=== PATIENT | male | born 1960 | race Hispanic/Latino ===

== ENCOUNTER 2018-01-25 09:39 | Emergency (ER) | payer SELFPAY ==
[2018-01-25 10:15] LABS: Absolute Lymphocytes (CBC) 2.1 K/uL (0.7-4.9); Absolute Monocytes 0.7 K/uL (0.1-1.3); Basophils % 0.8 % (0-1.3); Eosinophils % 2.8 % (0-4.4); Hematocrit 47.5 % (39.6-49.0); Lymphocytes % 15.9 % (15.3-44.8); MCH 30.6 pg (27.0-35.0); MCV 90.1 fL (80-100); MPV 7.4 fL (7.6-11.3); Monocytes % 5.3 % (3.3-12.3); RBC Red Blood Cell Count 5.28 M/uL (4.33-5.43)
[2018-01-25] MEDS ORDERED: ONDANSETRON 4 MG/2 ML VIAL ONE (10:16)
[2018-01-25] MEDS ORDERED: NA CHLORIDE 0.9% 1,000 ML ONE (10:16)
[2018-01-25] MEDS ORDERED: MORPHINE 4 MG/ML SYR ONE (10:16)
[2018-01-25 10:32] LABS: Bicarbonate 29 mEq/L (21-31); Glucose Level 128 mg/dL (65-120); Lipase 44 U/L (22-51); Potassium 4.1 mEq/L (3.6-5.0)
[2018-01-25 10:39] LABS: ALT/SGPT 36 IU/L (10-60); AST/SGOT 29 IU/L (10-42); Albumin 4.3 g/dL (3.2-5.5); Alkaline Phosphatase 96 IU/L (42-121); Amylase Level 97 U/L (28-100); BUN Blood Urea Nitrogen 14 mg/dL (6-20); Bilirubin Direct 0.1 mg/dL (0-0.2); Bilirubin Total 0.9 mg/dL (0.3-1.2); Protein, Total 7.2 g/dL (6.0-8.3)
--- NOTE | 2018-01-25 12:13 | RAD REPORT ---
EXAM DESCRIPTION: CT - Abdomen Pelvis W Contrast - 01/25/2018 11:48 am CLINICAL HISTORY: Abdominal pain periumbilical pain with nausea and vomiting for 2 days COMPARISON: none. TECHNIQUE: Computed axial tomography of the abdomen pelvis was obtained. 100 cc Isovue-300 was admin istered intravenously. Oral contrast was not requested which limits evaluation of bowel. All CT scans are performed using dose optimization technique as appropriate and may include automated exposure control or mA/KV adjustment according to patient size. FINDINGS: The liver, spleen, pancreas, adrenal and kidneys appear unremarkable. There is no evidence of diverticulitis. The appendix is normal. Bilateral inguinal hernias contain fat. An umbilical hernia contains fat. The neck measures 12 millim eters. Stranding is present within the fat IMPRESSION: Umbilical hernia. Stranding within the fat may indicate strangulation.
--- NOTE | 2018-01-25 13:06 | ER ---
Nurse's Notes [facility] Name: Ha Curry Age: 57 yrs Sex: Male : 1960 Arrival Date: 01/25/2018 Time: 09:42 Bed 12 Private MD: None, None Diagnosis: Umbilical hernia Presentation: 01/25 09:44 Presenting complaint: Patient states: Intermittent periumbilical pain and N/V x 2 days. hb Pain is partially relieved by vomiting, but returns after a few hours. Transition of care: patient was not received from another setting of care. Onset of symptoms was January 24, 2018. Initial Sepsis Screen: Does the patient meet any 2 criteria? No. Patient's initial sepsis screen is negative. Does the patient have a suspected source of infection? No. Patient's initial sepsis screen is negative. Care prior to arrival: None. 09:44 Method Of Arrival: Ambulatory hb 09:44 Acuity: DEVORAH 3 hb Historical: - Allergies: 09:46 No Known Allergies; hb - Home Meds: 09:46 None [Active]; hb - PMHx: 09:46 None; hb - PSHx: 09:46 None; hb - Immunization history:: Adult Immunizations up to date. - Social history:: Smoking status: Patient uses tobacco products, smokes one pack cigarettes per day. Screenin:00 Abuse screen: Denies threats or abuse. Denies injuries from another. Nutritional ph screening: No deficits noted. Tuberculosis screening: No symptoms or risk factors identified. Fall Risk None identified. Assessment: 10:00 General: Appears in no apparent distress. uncomfortable, well groomed, Behavior is ph calm, cooperative, appropriate for age, Denies fever, feeling ill. Pain: Complains of pain in abdomen and umbilical area. Neuro: Level of Consciousness is awake, alert, obeys commands, Oriented to person, place, time, situation. Cardiovascular: Capillary refill < 3 seconds Patient's skin is warm and dry. Respiratory: Airway is patent Respiratory effort is even, unlabored. GI: Abdomen is flat, non-distended, Bowel sounds present X 4 quads. Abd is soft and non tender X 4 quads. : No signs and/or symptoms were reported regarding the genitourinary system. Derm: Skin is intact, is healthy with good turgor, Skin is pink, warm \T\ dry. Musculoskeletal: Circulation, motion, and sensation intact. Range of motion: intact in all extremities. 11:09 Reassessment: Patient appears in no apparent distress at this time. Patient and/or ph family updated on plan of care and expected duration. Pain level reassessed. Patient is alert, oriented x 3, equal unlabored respirations, skin warm/dry/pink. Pt resting quietly, awaiting CT scan, SO at bedside. 12:00 Reassessment: Patient appears in no apparent distress at this time. Patient and/or ph family updated on plan of care and expected duration. Pain level reassessed. Patient is alert, oriented x 3, equal unlabored respirations, skin warm/dry/pink. 13:25 Reassessment: Patient is alert, oriented x 3, equal unlabored respirations, skin aa5 warm/dry/pink. Vital Signs: 09:46 BP 153 / 73; Pulse 58; Resp 18; Temp 98; Pulse Ox 100% on R/A; Weight 83.91 kg; Height hb 5 ft. 8 in. (172.72 cm); Pain 10/10; 11:10 BP 113 / 78; Pulse 50; Resp 16; Pulse Ox 100% on R/A; ph 12:30 BP 118 / 78; Pulse 52; Resp 18; Temp 97.9; Pulse Ox 99% on R/A; ph 09:46 Body Mass Index 28.13 (83.91 kg, 172.72 cm) hb ED Course: 09:42 Patient arrived in ED. mr 09:42 None, None is Private Physician. mr 09:46 Triage completed. hb 09:46 Arm band placed on left wrist. hb 09:49 Sasha Sanders FNP-C is PHCP. kb 09:49 Sabas Blair MD is Attending Physician. kb 09:51 Sarah Berger RN is Primary Nurse. ph 10:00 Patient has correct armband on for positive identification. Bed in low position. Call ph light in reach. Side rails up X 1. Pulse ox on. NIBP on. Warm blanket given. 10:05 Inserted saline lock: 20 gauge in left forearm, using aseptic technique. Blood tw2 collected. 11:[address] via wheelchair. kw1 11:47 CT completed. Patient tolerated procedure well. Patient moved back from CT. kw1 11:49 CT Abd/Pelvis - W/Contrast In Process Unspecified. EDMS 13:00 No provider procedures requiring assistance completed. ph 13:05 Danilo Tolentino MD is Referral Physician. kb 13:25 IV discontinued, intact, bleeding controlled, No redness/swelling at site. Pressure aa5 dressing applied. Administered Medications: 10:18 Drug: Zofran 4 mg Route: IVP; Site: left forearm; tw2 11:00 Follow up: Response: No adverse reaction ph 10:20 Drug: morphine 4 mg Route: IVP; Site: left forearm; tw2 11:00 Follow up: Response: No adverse reaction ph 10:22 Drug: NS 0.9% 1000 ml Route: IV; Rate: 1000 ml; Site: left forearm; tw2 11:30 Follow up: Response: No adverse reaction; IV Status: Completed infusion ph Outcome: 13:06 Discharge ordered by MD. kb 13:[address] Tolentino's office with family aa5 13:25 Condition: stable 13:25 Discharge instructions given to patient, Instructed on discharge instructions, follow up and referral plans. Demonstrated understanding of instructions, follow-up care. 13:27 Patient left the ED. aa5 Signatures: Dispatcher [employer] EDMS Sasha Sanders, RESISTOR TESTER-C RESISTOR TESTER-Debbie Johnson Audri, RN RN aa5 Sarah Berger, RUDY RN Lurdes Cole, RUDY GRANT Destiny Mendiola RN RN tw2 Maura Elise kw1
--- NOTE | 2018-01-25 13:06 | EDPHYS ---
Physician Documentation [facility] Name: Ha Curry Age: 57 yrs Sex: Male : 1960 Arrival Date: 01/25/2018 Time: 09:42 Bed 12 Private MD: None, None ED Physician Sabas Blair HPI: 01/25 12:41 This 57 yrs old Male presents to ER via Ambulatory with complaints of kb Abdominal Pain. 12:41 The patient presents with abdominal pain. Onset: The symptoms/episode began/occurred kb yesterday, at 16:00. The symptoms do not radiate. Associated signs and symptoms: Pertinent positives: nausea, Pertinent negatives: anorexia, blood in stools, chest pain, constipation, diarrhea, dysuria, fever, headache, hematuria, palpitations, shortness of breath, testicular pain, vomiting blood. The symptoms are described as constant. Modifying factors: The symptoms are alleviated by nothing, the symptoms are aggravated by pressure. Severity of pain: At its worst the pain was moderate in the emergency department the pain is unchanged. The patient has experienced similar episodes in the past, multiple times. The patient has not recently seen a physician. Historical: - Allergies: 09:46 No Known Allergies; hb - Home Meds: 09:46 None [Active]; hb - PMHx: 09:46 None; hb - PSHx: 09:46 None; hb - Immunization history:: Adult Immunizations up to date. - Social history:: Smoking status: Patient uses tobacco products, smokes one pack cigarettes per day. ROS: 10:09 Constitutional: Negative for fever, chills, and weight loss, Cardiovascular: Negative kb for chest pain, palpitations, and edema, Respiratory: Negative for shortness of breath, cough, wheezing, and pleuritic chest pain, Back: Negative for injury and pain, : Negative for injury, bleeding, discharge, and swelling, MS/Extremity: Negative for injury and deformity, Skin: Negative for injury, rash, and discoloration, Neuro: Negative for headache, weakness, numbness, tingling, and seizure. 10:09 Abdomen/GI: Positive for abdominal pain, nausea and vomiting, Negative for diarrhea, constipation, abdominal cramps, abdominal distension, anorexia. Exam: 10:09 Constitutional: This is a well developed, well nourished patient who is awake, alert, kb and in no acute distress. Head/Face: Normocephalic, atraumatic. Chest/axilla: Normal chest wall appearance and motion. Nontender with no deformity. No lesions are appreciated. Cardiovascular: Regular rate and rhythm with a normal S1 and S2. No gallops, murmurs, or rubs. Normal PMI, no JVD. No pulse deficits. Respiratory: Lungs have equal breath sounds bilaterally, clear to auscultation and percussion. No rales, rhonchi or wheezes noted. No increased work of breathing, no retractions or nasal flaring. Skin: Warm, dry with normal turgor. Normal color with no rashes, no lesions, and no evidence of cellulitis. MS/ Extremity: Pulses equal, no cyanosis. Neurovascular intact. Full, normal range of motion. Neuro: Awake and alert, GCS 15, oriented to person, place, time, and situation. Cranial nerves II-XII grossly intact. Motor strength 5/5 in all extremities. Sensory grossly intact. Cerebellar exam normal. Normal gait. 10:09 Abdomen/GI: Inspection: abdomen appears normal, Bowel sounds: normal, in all quadrants, Palpation: soft, in all quadrants, mild abdominal tenderness, in the right upper quadrant, right lower quadrant and left lower quadrant, Hernia: noted in the umbilical area, tenderness, that is mild, reduced. Vital Signs: 09:46 BP 153 / 73; Pulse 58; Resp 18; Temp 98; Pulse Ox 100% on R/A; Weight 83.91 kg; Height hb 5 ft. 8 in. (172.72 cm); Pain 10/10; 11:10 BP 113 / 78; Pulse 50; Resp 16; Pulse Ox 100% on R/A; ph 12:30 BP 118 / 78; Pulse 52; Resp 18; Temp 97.9; Pulse Ox 99% on R/A; ph 09:46 Body Mass Index 28.13 (83.91 kg, 172.72 cm) hb MDM: 09:49 Patient medically screened. kb 10:08 Data reviewed: vital signs, nurses notes. Data interpreted: Pulse oximetry: on room air kb is 100 %. Interpretation: normal. 10:09 ED course: umbilical hernia reduced, pt tolerated well. Pain decreased after reduction. kb 12:41 Counseling: I had a detailed discussion with the patient and/or guardian regarding: the kb historical points, exam findings, and any diagnostic results supporting the discharge/admit diagnosis, lab results, radiology results, the need for outpatient follow up, a general surgeon, to return to the emergency department if symptoms worsen or persist or if there are any questions or concerns that arise at home. Physician consultation: Danilo Tolentino MD was contacted at 12:41, regarding consult, patient's condition, and will see patient in office, later today. 13:02 ED course: Spoke with Lyudmila at Dr Tolentino's office. Appt set for 1400 today. kb 01/25 09:49 Order name: Amylase, Serum kb 01/25 09:49 Order name: Basic Metabolic Panel kb 01/25 09:49 Order name: CBC with Diff; Complete Time: 10:26 kb 01/25 09:49 Order name: Hepatic Function kb 01/25 09:49 Order name: Lipase kb 01/25 10:04 Order name: CT Abd/Pelvis - W/Contrast; Complete Time: 12:15 kb 01/25 09:49 Order name: IV Saline Lock; Complete Time: 10:14 kb 01/25 09:49 Order name: Labs collected and sent; Complete Time: 10:14 kb Administered Medications: 10:18 Drug: Zofran 4 mg Route: IVP; Site: left forearm; tw2 11:00 Follow up: Response: No adverse reaction ph 10:20 Drug: morphine 4 mg Route: IVP; Site: left forearm; tw2 11:00 Follow up: Response: No adverse reaction ph 10:22 Drug: NS 0.9% 1000 ml Route: IV; Rate: 1000 ml; Site: left forearm; tw2 11:30 Follow up: Response: No adverse reaction; IV Status: Completed infusion ph Disposition: 14:19 Co-signature as Attending Physician, Sabas Blair MD I agree with the assessment and lindsay plan of care. Disposition: 01/25/18 13:06 Discharged to Home. Impression: Umbilical hernia. - Condition is Stable. - Discharge Instructions: Hernia, [id number]. - Medication Reconciliation Form, Thank You Letter, Antibiotic Education, Prescription Opioid Use form. - Follow up: Emergency Department; When: As needed; Reason: Worsening of condition. Follow up: Danilo Tolentino MD; When: at 2:00 PM today; Reason: Recheck today's complaints. Signatures: Dispatcher [employer] EDMS TommyDemetrioSasha, AQUATIC ECOLOGIST-C AQUATIC ECOLOGIST-Ckb Sabas Blair MD MD cha Calderon, Audri, RN RN aa5 Lurdes Cole, RN RN Destiny Mendiola RN RN tw2 Sarah Berger RN ph Corrections: (The following items were deleted from the chart) 13:27 13:06 01/25/2018 13:06 Discharged to Home. Impression: Umbilical hernia. Condition is aa5 Stable. Forms are Medication Reconciliation Form, Thank You Letter, Antibiotic Education, Prescription Opioid Use. Follow up: Emergency Department; When: As needed; Reason: Worsening of condition. Follow up: Danilo Tolentino; When: at 2:00 PM today; Reason: Recheck today's complaints. kb
[2018-01-25 23:37] LABS: Sodium Level 139 mEq/L (135-145)
== END 2018-01-25 13:27 | disposition home or self-care (01) ==
LOC: ER 09:39
DX: K42.9 Umbilical hernia without obstruction or gangrene (principal); F17.210 Nicotine dependence, cigarettes, uncomplicated
CPT/HCPCS: 36415; 74177; 80048; 80076; 82150; 83690; 85025; 96361; 96374; 96375; 99284; J2405; J7030

== ENCOUNTER 2024-07-22 22:56 | Emergency (ER) | payer SELFPAY ==
[2024-07-22] MEDS ORDERED: TDAP (DIPHTH,PERTUSS(ACELL),TET VAC) 0.5 ML VIAL IMVAC ONE (23:16)
[2024-07-22 23:21] LABS: Absolute Basophils 0.2 K/uL (0-0.5); Absolute Eosinophils 0.2 K/uL (0-0.5); Absolute Lymphocytes (CBC) 1.9 K/uL (0.7-4.9); Absolute Monocytes 0.9 K/uL (0.1-1.3); Absolute Neutrophil 9.1 K/uL (1.8-8.0); Basophils % 1.4 % (0-1.3); Eosinophils % 1.8 % (0-4.4); Hematocrit 42.1 % (39.6-49.0); Hemoglobin 14.7 g/dL (13.6-17.9); Lymphocytes % 15.1 % (15.3-44.8); MCH 31.7 pg (27.0-35.0); MCHC 34.8 g/dL (32.0-36.0); MPV 6.7 fL (7.6-11.3); Monocytes % 7.6 % (3.3-12.3); Neutrophils % 74.1 % (41.7-73.7); Nucleated Red Blood Cells % 0.1 % (0-0); Platelets 339 thou/uL (152-406); RBC Red Blood Cell Count 4.63 M/uL (4.33-5.43); Red Cell Distribution Width 13.2 % (12.1-15.2)
[2024-07-22 23:41] LABS: Albumin 3.7 g/dL (3.4-5.0); Albumin/Globulin Ratio 1.1 (1.1-1.8); Bilirubin Total 1.2 mg/dL (0.2-1.0); Globulin 3.5 g/dL (2.3-3.5); Protein, Total 7.2 g/dL (6.4-8.2)
[2024-07-22] MEDS ORDERED: NA CHLORIDE 0.9% 1,000 ML ONE (23:51)
[2024-07-23] MEDS ORDERED: LEVETIRACETAM 500 MG/5 ML VIAL IV ONE (00:26)
[2024-07-23] MEDS ORDERED: NA CHLORIDE 0.9% 100 ML ONE (00:27)
[2024-07-23] MEDS ORDERED: LORazepam 2 MG/ML VIAL ONE (00:28)
[2024-07-23] MEDS ORDERED: DIPHENHYDRAMINE 50 MG/ML VIAL ONE (00:31)
[2024-07-23] MEDS ORDERED: HALOPERIDOL LACT 5 MG/ML INJ ONE (00:32)
[2024-07-23 01:39] LABS: Barbiturates NEGATIVE (NEGATIVE); Benzodiazepines NEGATIVE (NEGATIVE); Cocaine POSITIVE (NEGATIVE); METHAMPHETAM NEGATIVE (NEGATIVE); Methadone NEGATIVE (NEGATIVE); Opiates NEGATIVE (NEGATIVE); Phencyclidine NEGATIVE (NEGATIVE); THC Cannibis POSITIVE (NEGATIVE)
[2024-07-23 01:47] LABS: Specific Gravity 1.027 (1.005-1.030); Sqamous Epithelial <5 /HPF (None Seen); Urine Bacteria <20 /HPF (<20); Urine Bilirubin NEGATIVE (Negative); Urine Blood 1+ (Negative); Urine Clarity Turbid (Clear); Urine Color Yellow (Yellow); Urine Crystals Unidentified Few /HPF (None Seen); Urine Culture Reflex Order REFLEXED; Urine Glucose TRACE (Negative); Urine Ketones 1+ (Negative); Urine Micro Reflex YN NO BILL MICROSCOPIC; Urine Mucus Slight /HPF (None Seen); Urine Nitrite NEGATIVE (Negative); Urine Protein 1+ (Negative); Urine Urobilinogen Normal (Normal); Urine WBC Clump Rare /HPF (None Seen); Urine Yeast (Budding) Trace /HPF (None Seen); Urine pH 5.5 (5.0-7.0)
--- NOTE | 2024-07-23 02:41 | RAD REPORT ---
EXAM DESCRIPTION: Head Brain Wo Cont CLINICAL HISTORY: 64 years Male Head injury. COMPARISON: None. TECHNIQUE: Images were obtained in axial, coronal and sagittal planes. No contrast administration. This exam was performed according to our departmental dose-optimization program which includes use of Automated Exposure Control, adjustment of the mA and/or kV according to patient size and/or use of iterative re construction technique. FINDINGS: Ventricular system appears normal. No abnormal areas of increased attenuation seen. No extra-axial fluid collections noted. No evidence for skull fracture. Scalp soft tissue swelling anteriorly on the left. Left facial soft t issue swelling at level of left maxillary antrum. Symmetric aeration of mastoid air cells bilaterally. Mucosal thickening paranasal sinuses. Skin calcifications. IMPRESSION: No acute intracranial abnormality. No evidence for hemorrhage, mass lesion, or large acute infarction . Scalp soft tissue swelling anteriorly on the left. Left facial soft tissue swelling. Electronically signed by: Sheri Blood MD 07/23/2024 12:24 AM [facility] Due to temporary technical issues with the PACS/[employer] reporting system, reports are being lux d by the in-house radiologist without review as a courtesy to ensure prompt reporting the interpreting radiologist is fully responsible for the content of the report. Transcribed Date/Time: 07/23/2024 2:40 AM
--- NOTE | 2024-07-23 08:47 | ER ---
Nurse's Notes [facility] Name: Ha Curry Age: 64 yrs Sex: Male : 1960 Arrival Date: 07/22/2024 Time: 22:56 Bed 7 Private MD: Diagnosis: Other seizures;Cocaine abuse;Cannabis abuse;Leukocytosis, Hypokalemia;Scalp Laceration Presentation: 07/22 23:14 Chief complaint: EMS states: we were called out for a pt who had seizure like activity bm8 just prior to our arrival, when pt woke he ran from us. has obvious wound on side of head from falling during activity. Coronavirus screen: At this time, the client does not indicate any symptoms associated with coronavirus-19. Ebola Screen: No symptoms or risks identified at this time. Initial Sepsis Screen: Does the patient meet any 2 criteria? No. Patient's initial sepsis screen is negative. Does the patient have a suspected source of infection? No. Patient's initial sepsis screen is negative. Risk Assessment: Do you want to hurt yourself or someone else? Patient reports no desire to harm self or others. Onset of symptoms was July 22, 2024 at 22:00. 23:14 Method Of Arrival: EMS: [facility] bm8 23:14 Acuity: DEVORAH 3 bm8 Triage Assessment: 23:16 General: Appears distressed, uncomfortable, Behavior is cooperative, appropriate for bm8 age, agitated. Pain: Complains of pain in left temporal area Pain radiates to neck Pain currently is 8 out of 10 on a pain scale. Quality of pain is described as aching. EENT: No deficits noted. No signs and/or symptoms were reported regarding the EENT system. Neuro: No deficits noted. Level of Consciousness is awake, alert, obeys commands, Oriented to person, place, situation, Appropriate for age Office Manager Receptionist are equal bilaterally Moves all extremities. Full function Speech is normal, Facial symmetry appears normal, Pupils are PERRLA. Cardiovascular: No deficits noted. Heart tones S1 S2 present Capillary refill < 3 seconds in bilateral fingers Patient's skin is warm and dry. Respiratory: Airway is patent Trachea midline Respiratory effort is even, unlabored, Respiratory pattern is regular, symmetrical, Breath sounds are clear bilaterally. GI: obvious umbilical hernia Bowel sounds present X 4 quads. Reports lower abdominal pain. : No signs and/or symptoms were reported regarding the genitourinary system. Derm: Wound noted left temporal area Wound is lac from falling in a seated position onto ground. Musculoskeletal: No deficits noted. No signs and/or symptoms reported regarding the musculoskeletal system. 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 - Infectious Disease History:: Denies. - Social history:: Smoking status: Patient reports the use of cigarette tobacco products, denies chronic smoking, but will smoke occasionally, Patient uses alcohol. Screenin/09 00:10 [facility] ED Fall Risk Assessment (Adult) History of falling in the last 3 months, bm8 including since admission Yes- physiologic fall (2 pts) Confusion or Disorientation Yes (5 pts) Intoxicated or Sedated No (0 pts) Impaired Gait No (0 pts) Mobility Assist Device Used No (0 pt) Altered Elimination No (0 pt) Score/Fall Risk Level 3 or more points = High Risk Oriented to surroundings, Maintained a safe environment, Educated pt \T\ family on fall prevention, incl call for assistance when getting out of bed, Assessed \T\ reinforced patient's understanding of fall precautions, Hourly rounding (assess needs \T\ fall precautionary measures) done, Used ambulatory aids as needed (educated on \T\ assisted with), Used gait belt as appropriate. Abuse screen: Denies threats or abuse. Nutritional screening: No deficits noted. Tuberculosis screening: No symptoms or risk factors identified. Assessment: 00:10 Reassessment: Patient appears in no apparent distress at this time. Patient and/or bm8 family updated on plan of care and expected duration. Pain level reassessed. Patient is alert, oriented x 3, equal unlabored respirations, skin warm/dry/pink. 00:25 Reassessment: pt began having active seizure, provider informed. Seizure lasted bm8 approximately 30 seconds. In pt's post ictal state he began trying to get out of bed and fighting to get away. help was called for to keep pt from harming himself and medications administered as per emar. 00:42 Reassessment: Pt is currently resting with eyes closed breathing is even unlabored with bm8 symmetrrical rise and fall of chest, NAD at this time. Wound care to head lac provided. 01:51 Reassessment: Patient appears in no apparent distress at this time. Patient and/or bm8 family updated on plan of care and expected duration. Pain level reassessed. Patient is alert, oriented x 3, equal unlabored respirations, skin warm/dry/pink. pt is resting with eyes closed breathing is even unlabored with symmetrical rise and fall of chest. 03:34 Reassessment: Patient appears in no apparent distress at this time. Patient and/or bm8 family updated on plan of care and expected duration. Pain level reassessed. Patient is alert, oriented x 3, equal unlabored respirations, skin warm/dry/pink. pt is resting with eyes closed breathing is even unlabored at this time. Patient denies pain at this time. 04:31 Reassessment: attempted to rouse pt to ambulate. Pt was not waking up, md informed. bm8 05:30 Reassessment: Patient appears in no apparent distress at this time. No changes from bm8 previously documented assessment. Patient is alert, oriented x 3, equal unlabored respirations, skin warm/dry/pink. Patient states feeling better. Patient states symptoms have improved. 06:55 Reassessment: Patient appears in no apparent distress at this time. No changes from bm8 previously documented assessment. Patient and/or family updated on plan of care and expected duration. Pain level reassessed. Patient is alert, oriented x 3, equal unlabored respirations, skin warm/dry/pink. pt is very groggy, Opens eyes to calling of his name, but movement and speech are currently uncoordinated. Patient denies pain at this time. Patient states feeling better. Patient states symptoms have improved. 07:15 Reassessment: Pt sleeping, equal and unlabored respirations. . aa5 08:10 Reassessment: Patient is alert, oriented x 3, equal unlabored respirations, skin aa5 warm/dry/pink. MD notified pt is awake and alert. . 08:18 Reassessment: Attempted to contact pt's mother per pt's request, no answer and unable aa5 to leave voice mail. . 09:20 Reassessment: Patient is alert, oriented x 3, equal unlabored respirations, skin aa5 warm/dry/pink. 09:21 Reassessment: Contacted pt's girlfriend (Janina) for ride home per pt's request. . aa5 10:00 Reassessment: Patient is alert, oriented x 3, equal unlabored respirations, skin aa5 warm/dry/pink. Vital Signs: 07/22 23:14 BP 165 / 97; Pulse 89; Resp 17; Temp 97.4; Pulse Ox 97% ; Weight 72.57 kg; Height 5 ft. bm8 7 in. ; Pain 8/; 07/23 00:10 BP 150 / 86; Pulse 75; Resp 17; Temp 97.4; Pulse Ox 100% ; Pain 5/10; bm8 00:42 BP 138 / 70; Pulse 93; Resp 20; Temp 97.8; Pulse Ox 94% on 2 lpm NC; Pain 0/10; bm8 01:51 BP 123 / 68; Pulse 78; Resp 19; Temp 97.8; Pulse Ox 98% on 2 lpm NC; Pain 0/10; bm8 03:34 BP 114 / 65; Pulse 67; Resp 18; Temp 97.8; Pulse Ox 98% on 2 lpm NC; Pain 0/10; bm8 05:30 BP 118 / 62; Pulse 55; Resp 18; Temp 97.8; Pulse Ox 94% ; Pain 0/10; bm8 06:55 BP 131 / 54; Pulse 65; Resp 18; Temp 98; Pulse Ox 99% on R/A; Pain 0/10; bm8 07:21 BP 109 / 64; Pulse 58; Resp 17; Pulse Ox 100% ; ko1 09:45 BP 117 / 69; Pulse 60; Resp 16 S; Temp 97.1(TE); Pulse Ox 98% on R/A; aa5 07/22 23:14 Body Mass Index 25.06 (72.57 kg, 170.18 cm) bm8 07/22 23:14 Pain Scale: Adult bm8 07/23 00:10 Pain Scale: Adult bm8 00:42 Pain Scale: Adult bm8 01:51 Pain Scale: Adult bm8 03:34 Pain Scale: Adult bm8 05:30 Pain Scale: Adult bm8 06:55 Pain Scale: Adult bm8 [place] Coma Score: 07/22 23:16 Eye Response: spontaneous(4). Motor Response: obeys commands(6). Verbal Response: bm8 confused(4). Total: 14. 07/23 00:10 Eye Response: spontaneous(4). Motor Response: obeys commands(6). Verbal Response: bm8 oriented(5). Total: 15. 03:34 Eye Response: to voice(3). Modifying Factors: Medicated. Motor Response: localizes bm8 pain(5). Verbal Response: oriented(5). Total: 13. 06:55 Eye Response: to voice(3). Modifying Factors: Medicated. Motor Response: obeys bm8 commands(6). Verbal Response: inappropriate words(3). Total: 12. ED Course: 07/22 22:57 Patient arrived in ED. ec2 22:57 Skip Ferguson MD is Attending Physician. ec2 23:14 García Santos, RN is Primary Nurse. bm8 23:16 Triage completed. bm8 23:16 Arm band placed on right wrist. bm8 23:29 Warm blanket given. vk 23:49 Seizure precautions initiated. bm8 23:58 CT Head Brain wo Cont In Process Unspecified. EDMS 07/23 00:10 Patient has correct armband on for positive identification. Placed in gown. Bed in low bm8 position. Call light in reach. Side rails up X 1. Client placed on continuous cardiac and pulse oximetry monitoring. NIBP monitoring applied. Pulse ox on. NIBP on. 00:10 No provider procedures requiring assistance completed. Inserted saline lock: 18 gauge bm8 in left forearm, using aseptic technique. Blood collected. Flushed with 10 mL NS. 00:12 Patient maintains SpO2 saturation greater than 95% on room air. Response to oxygen bm8 therapy: symptoms improved. 07:02 Attending Physician role handed off by Skip Ferguson MD rt 07:02 Meliton Gan MD is Attending Physician. rt 08:47 Hesham Hood MD is Referral Physician. rt 09:21 IV discontinued, intact, bleeding controlled, No redness/swelling at site. Pressure aa5 dressing applied. Administered Medications: 07/22 23:30 Drug: Diph,Pertus(Acel),Tetanus Vac (PF) IM 0.5 ml IM once; indicated for adults and bm8 teenagers 11 to 64 years of age {Bung Remover: [employer]; Exp: Sun Jun 11 2025; Lot #: [id number]; Series: 1 of 1; Patient Consent: Obtained; Date/Time: ; Source Name: Ha Curry; Source Relationship: Self; Address Information: [address] [place] [id number]; ; Education: Provided; VIS Presented Date: ; VIS Publication: DTaP (Diphtheria, Tetanus, Pertussis) Vaccine VIS 04/19/2021} Route: IM; Site: left deltoid; 23:47 Follow up: Response: No adverse reaction bm8 07/23 00:10 Drug: NS 0.9% IV 1000 ml IV at 1 bolus Per protocol; to be given as a bolus over 60 bm8 minutes Route: IV; Rate: 1 bolus; Site: left forearm; 01:53 Follow up: Response: No adverse reaction; IV Status: Completed infusion; IV Intake: bm8 1000ml 00:36 Drug: Haloperidol IVP 5 mg IVP once Route: IVP; Site: left forearm; lg3 01:13 Follow up: Response: No adverse reaction bm8 00:36 Drug: Ativan IVP 2 mg IVP once Route: IVP; Site: left forearm; lg3 01:14 Follow up: Response: No adverse reaction bm8 00:36 Drug: diphenhydrAMINE IVP 50 mg IVP once Route: IVP; Site: left forearm; lg3 01:14 Follow up: Response: No adverse reaction bm8 00:43 Drug: Keppra IV 1000 mg IV at bolus once Route: IV; Rate: bolus; Site: left forearm; bm8 01:53 Follow up: Response: No adverse reaction; IV Status: Completed infusion; IV Intake: bm8 1000ml 01:53 Not Given (Physician Discretion): potassium meq PO once bm8 Medication: 00:10 Vaccine Information Statement (VIS) provided today. Questions and/or concerns bm8 addressed. VIS edition date: April 19, 2021. Intake: 01:53 IV: 1000ml; Total: 1000ml. bm8 01:53 IV: 1000ml; Total: 2000ml. bm8 Outcome: 08:47 Discharge ordered by . rt 10:00 Discharged to home via wheelchair, with significant other, aa5 10:00 Condition: stable 10:00 Discharge instructions given to patient, significant other, Instructed on discharge instructions, follow up and referral plans. medication usage, wound care, Demonstrated understanding of instructions, follow-up care, medications, Prescriptions given X 1, 10:07 Patient left the ED. aa5 Signatures: Dispatcher [employer] Lo Thomas RN RN aa5 Katie Robbins RN RN lg3 Denise Cheng RN RN ko1 Meliton Gan MD MD rt Skip Ferguson MD MD ec2 Janet Sierra Brad RN RN bm8 Corrections: (The following items were deleted from the chart) 07/22 23:17 23:16 Home Meds: None; bm8 bm8
--- NOTE | 2024-07-23 08:47 | EDPHYS ---
Physician Documentation [facility] Name: Ha Curry Age: 64 yrs Sex: Male : 1960 Arrival Date: 07/22/2024 Time: 22:56 Bed 7 Private MD: ED Physician Meliton Gan HPI: 07/22 22:58 This 64 yrs old Male presents to ER via Unassigned with complaints of ec2 intoxicated, head injury. 22:59 Patient arrives today for evaluation of altered mental status. Patient reportedly had ec2 multiple alcoholic beverages tonight. Patient reports that he also had a fall and struck his head. No LOC. Denies other coingestants. Patient possibly had a seizure episode per EMS.. Historical: - Allergies: 23:16 No Known Allergies; bm8 - Home Meds: 23:16 Unable to obtain [Active]; bm8 - PMHx: 23:16 Unable to Obtain; bm8 - PSHx: 23:16 None; bm8 - Immunization history:: Adult Immunizations unknown. - Infectious Disease History:: Denies. - Social history:: Smoking status: Patient reports the use of cigarette tobacco products, denies chronic smoking, but will smoke occasionally, Patient uses alcohol. ROS: 22:59 Constitutional: as per hpi ec2 Exam: 22:59 Constitutional: GEN: NAD Head: atraumatic Eyes: EOMI Ears: External ears are ec2 normal. CV: regular rate LUNGS: no respiratory distress ABD: non-distended SKIN: Contusion to the left forehead, dried blood present MSK: No C/T/L spine deformities. Bilateral upper and lower extremities without trauma. Vital Signs: 23:14 BP 165 / 97; Pulse 89; Resp 17; Temp 97.4; Pulse Ox 97% ; Weight 72.57 kg; Height 5 ft. bm8 7 in. ; Pain 8/10; 07/23 00:10 BP 150 / 86; Pulse 75; Resp 17; Temp 97.4; Pulse Ox 100% ; Pain 5/10; bm8 00:42 BP 138 / 70; Pulse 93; Resp 20; Temp 97.8; Pulse Ox 94% on 2 lpm NC; Pain 0/10; bm8 01:51 BP 123 / 68; Pulse 78; Resp 19; Temp 97.8; Pulse Ox 98% on 2 lpm NC; Pain 0/10; bm8 03:34 BP 114 / 65; Pulse 67; Resp 18; Temp 97.8; Pulse Ox 98% on 2 lpm NC; Pain 0/10; bm8 05:30 BP 118 / 62; Pulse 55; Resp 18; Temp 97.8; Pulse Ox 94% ; Pain 0/10; bm8 06:55 BP 131 / 54; Pulse 65; Resp 18; Temp 98; Pulse Ox 99% on R/A; Pain 0/10; bm8 07:21 BP 109 / 64; Pulse 58; Resp 17; Pulse Ox 100% ; ko1 09:45 BP 117 / 69; Pulse 60; Resp 16 S; Temp 97.1(TE); Pulse Ox 98% on R/A; aa5 07/22 23:14 Body Mass Index 25.06 (72.57 kg, 170.18 cm) bm8 07/22 23:14 Pain Scale: Adult bm8 07/23 00:10 Pain Scale: Adult bm8 00:42 Pain Scale: Adult bm8 01:51 Pain Scale: Adult bm8 03:34 Pain Scale: Adult bm8 05:30 Pain Scale: Adult bm8 06:55 Pain Scale: Adult bm8 [place] Coma Score: 07/22 23:16 Eye Response: spontaneous(4). Motor Response: obeys commands(6). Verbal Response: bm8 confused(4). Total: 14. 07/23 00:10 Eye Response: spontaneous(4). Motor Response: obeys commands(6). Verbal Response: bm8 oriented(5). Total: 15. 03:34 Eye Response: to voice(3). Modifying Factors: Medicated. Motor Response: localizes bm8 pain(5). Verbal Response: oriented(5). Total: 13. 06:55 Eye Response: to voice(3). Modifying Factors: Medicated. Motor Response: obeys bm8 commands(6). Verbal Response: inappropriate words(3). Total: 12. Laceration: 02:53 Wound Repair of 2cm ( 0.8in ) subcutaneous laceration to scalp. Distal ec2 neuro/vascular/tendon intact. Skin closed with 5 1-0 Tyler using simple sutures and sterile technique. Patient tolerated well. MDM: 07/22 22:57 Medical Screening Exam initiated ec2 23:01 Data reviewed: vital signs. ED course: Patient arrives today for evaluation of ec2 intoxication as well as altered mental status as well as a head injury. Examination is remarkable for an abrasion noted to the left side of the head. Will obtain CT scan of the head, lab work. Differential occludes intoxication, concussion, intracranial brain bleed.. 23:23 ED course: EKG independently reviewed and interpreted by me, shows normal sinus rhythm, ec2 rate of 81, no acute ST segment elevations, intervals are nonactionable.. 11 00:41 ED course: Patient had seizure activity lasted approximately 30 seconds that was ec2 witnessed by nursing. Give the patient a gram of Keppra, Ativan as well as Benadryl and Haldol as patient became combative when he was postictal.. 01:36 ED course: CT scan of the head shows no acute intracranial process. Scalp hematoma ec2 noted.. 03:18 ED course: I repaired the scalp laceration without issue. Patient without any repeat ec2 seizure episode.. 06:59 Transition of care: After a detail discussion of the patient's case, care is ec2 transferred to Meliton Gan MD. ED course: Patient signed out to oncoming physician with pending reassessment and clinical sobering and ambulatory challenge. Presentation consistent with seizure, will prescribe the patient Keppra.. 11:00 Differential Diagnosis Intracranial hemorrhage, polysubstance abuse. Consideration of rt Admission/Observation Escalation of care including admission/observation considered. Patient had return to baseline mental status, ambulatory, workup is benign, stable for outpatient care.. I considered the following discharge prescriptions or medication management in the emergency department Medications were administered in the Emergency Department. See MAR. Counseling: I had a detailed discussion with the patient and/or guardian regarding the historical points, exam findings, and any diagnostic results supporting the discharge/admit diagnosis, lab results, radiology results, the need for outpatient follow up, to return to the emergency department if symptoms worsen or persist or if there are any questions or concerns that arise at home. Response to treatment: the patient's symptoms have markedly improved after treatment. 07/22 22:58 Order name: CBC with Diff; Complete Time: 23:31 ec2 07/22 22:58 Order name: CMP; Complete Time: 23:59 ec2 07/22 22:58 Order name: UDS; Complete Time: 01:57 ec2 07/22 22:58 Order name: UAM; Complete Time: 01:57 ec2 07/22 22:59 Order name: ETOH Level; Complete Time: 23:59 ec2 07/23 01:53 Order name: Urine Culture EDMS 07/22 22:58 Order name: CT Head Brain wo Cont ec2 07/22 22:58 Order name: Wound Care; Complete Time: 00:36 ec2 07/22 22:58 Order name: IV Start; Complete Time: 23:19 ec2 07/22 23:01 Order name: EKG - Nurse/Tech; Complete Time: 23:19 ec2 07/23 00:40 Order name: Straight Cath; Complete Time: 01:13 ec2 Administered Medications: 07/22 23:30 Drug: Diph,Pertus(Acel),Tetanus Vac (PF) IM 0.5 ml IM once; indicated for adults and bm8 teenagers 11 to 64 years of age {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: [employer]; Exp: Audra Jun 11 2025; Lot #: [id number]; Series: 1 of 1; Patient Consent: Obtained; Date/Time: ; Source Name: Ha Curry; Source Relationship: Self; Address Information: [address] [place] [id number]; ; Education: Provided; VIS Presented Date: ; VIS Publication: DTaP (Diphtheria, Tetanus, Pertussis) Vaccine VIS 04/19/2021} Route: IM; Site: left deltoid; 23:47 Follow up: Response: No adverse reaction 8 07/23 00:10 Drug: NS 0.9% IV 1000 ml IV at 1 bolus Per protocol; to be given as a bolus over 60 bm8 minutes Route: IV; Rate: 1 bolus; Site: left forearm; 01:53 Follow up: Response: No adverse reaction; IV Status: Completed infusion; IV Intake: bm8 1000ml 00:36 Drug: Haloperidol IVP 5 mg IVP once Route: IVP; Site: left forearm; lg3 01:13 Follow up: Response: No adverse reaction bm8 00:36 Drug: Ativan IVP 2 mg IVP once Route: IVP; Site: left forearm; lg3 01:14 Follow up: Response: No adverse reaction bm8 00:36 Drug: diphenhydrAMINE IVP 50 mg IVP once Route: IVP; Site: left forearm; lg3 01:14 Follow up: Response: No adverse reaction bm8 00:43 Drug: Keppra IV 1000 mg IV at bolus once Route: IV; Rate: bolus; Site: left forearm; bm8 01:53 Follow up: Response: No adverse reaction; IV Status: Completed infusion; IV Intake: bm8 1000ml 01:53 Not Given (Physician Discretion): potassium meq PO once bm8 Disposition Summary: 07/23/24 08:47 Discharge Ordered Notes: You need to return to have your xenia removed in 7-10 days
Location: Home rt Condition: Stable rt Diagnosis - Other seizures rt - Cocaine abuse rt - Cannabis abuse rt - Leukocytosis, Hypokalemia rt - Scalp Laceration rt Followup: ec2 - With: Private Physician - When: - Reason: Re-evaluation by your physician Followup: ec2 - With: Hesham Hood MD - When: - Reason: Recheck today's complaints Discharge Instructions: - Discharge Summary Sheet ec2 - Seizure, Adult ec2 Forms: - Medication Reconciliation Form rt - Antibiotic Education rt - Prescription Opioid Use rt - Patient Portal Instructions rt - Leadership Thank You Letter rt Prescriptions: - Keppra 500 mg Oral Tablet - take 1 tablet ORAL route every 12 hours; 20 tablet; Refills: 0, Product ec2 Selection Permitted Signatures: Dispatcher [employer] Katie Huitron RN RN lg3 Cyndi Marshall RN RN ha1 Meliton Gan MD MD rt Skip Ferguson MD MD ec2 García Santos, RN RN bm8 Corrections: (The following items were deleted from the chart) 07/22 22:58 22:58 CBC+H.LAB.BRZ ordered. EDMS EDMS 22:58 22:58 COMPREHENSIVE METABOLIC PANEL+C.LAB.BRZ ordered. EDMS EDMS 22:58 22:58 URINE DRUG SCREEN+UC.LAB.BRZ ordered. EDMS EDMS 22:58 22:58 Head Brain Wo Cont+CT.RAD.BRZ ordered. EDMS EDMS 22:58 22:58 Urinalysis W/Microscopic+U.LAB.BRZ ordered. EDMS EDMS 22:59 22:59 ETHANOL+C.LAB.BRZ ordered. EDMS EDMS 23:17 23:16 Home Meds: None; bm8 bm8 23:23 22:59 Patient arrives today for evaluation of altered mental status. Patient reportedly ec2 had multiple alcoholic beverages tonight. Patient reports that he also had a fall and struck his head. No LOC. Denies other coingestants.. ec2 07/23 10:07 03:58 Misc. Order ordered. ec2 aa5
[2024-07-23 10:24] VITALS: TEMP 98
[2024-07-23 10:25] VITALS: BP 109/64; O2SAT 100
--- NOTE | 2024-07-26 08:57 | EKG ---
Test Date: 2024-07-22 Test Time: 23:06:23 Retanner: HOMA MEASUREMENT RESULTS: Intervals: Rate: 81 OR: 152 QRSD: 88 QT: 400 QTc: 464 [place]: P: 61 OR: 152 QRS: 56 T: 59 INTERPRETIVE STATEMENTS: Normal sinus rhythm Normal ECG No previous ECG available for comparison Electronically Signed On 07-26-24 08:54:32 [employer] SOCIAL WORKER by Kelvin Barclay
== END 2024-07-23 10:07 | disposition home or self-care (01) ==
LOC: ER 22:56
DX: G40.89 Other seizures (principal); F14.10 Cocaine abuse, uncomplicated; F12.10 Cannabis abuse, uncomplicated; D72.829 Elevated white blood cell count, unspecified; E87.6 Hypokalemia; S01.01XA Laceration without foreign body of scalp, initial encounter; F17.210 Nicotine dependence, cigarettes, uncomplicated
CPT/HCPCS: 12001; 36415; 70450; 80053; 80307; 81001; 82077; 85025; 87086; 87088; 90471; 93005; 96361; 96365; 96375; 99284; J1200; J1630; J1953; J7030

== ENCOUNTER 2024-08-16 09:52 | Emergency (ER) | payer SELFPAY ==
--- NOTE | 2024-08-16 11:01 | EDPHYS ---
Physician Documentation [facility] Name: Ha Curry Age: 64 yrs Sex: Male : 1960 Arrival Date: 08/16/2024 Time: 09:52 Bed 22 Private MD: ED Physician Skip Ferguson HPI: 08/16 11:04 This 64 yrs old Male presents to ER via Unassigned with complaints of Suture ec2 Removal. 11:04 Patient arrives today for evaluation of her bright. Patient with 5 bright placed 2 ec2 weeks ago. No other concerns.. Historical: - Allergies: 11:05 No Known Allergies; kb3 - Home Meds: 11:05 None [Active]; kb3 - PMHx: 11:05 None; kb3 - PSHx: 11:05 None; kb3 - Immunization history:: Adult Immunizations up to date, Client reports receiving the 2nd dose of the Covid vaccine, Last tetanus immunization: up to date. - Infectious Disease History:: Denies. - Social history:: Smoking status: Patient denies any tobacco usage or history of. ROS: 11:04 Constitutional: as per hpi ec2 Exam: 11:04 Constitutional: GEN: NAD Head: atraumatic Eyes: EOMI Ears: External ears are ec2 normal. CV: regular rate LUNGS: no respiratory distress ABD: non-distended SKIN: [address] to the left scalp, well-healed, no erythema, no drainage. MSK: no evidence of trauma Procedures: 11:04 Suture/Staple removal: Removed 5 bright, from scalp, site appears well healed, Patient ec2 tolerated well. MDM: 10:58 Medical Screening Exam initiated ec2 11:04 Data reviewed: vital signs, nurses notes. ED course: Patient arrives today for left ec2 scalp staple removal. Examination as above. I removed without issue. Discharged home. Return precautions given.. Administered Medications: No medications were administered Disposition Summary: 08/16/24 11:01 Discharge Ordered Notes: Location: Home ec2 Condition: Stable ec2 Diagnosis - Encounter for Staple Removal ec2 Followup: ec2 - With: Private Physician - When: - Reason: Re-evaluation by your physician Discharge Instructions: - Discharge Summary Sheet ec2 - Sutures, Bright, or Adhesive Wound Closure, [id number] ec2 Forms: - Medication Reconciliation Form ec2 - Antibiotic Education ec2 - Prescription Opioid Use ec2 - Patient Portal Instructions ec2 - Leadership Thank You Letter ec2 Signatures: Evie Campos RN RN kb3 Skip Ferguson MD MD ec2
--- NOTE | 2024-08-16 11:08 | ER ---
Nurse's Notes [facility] Name: Ha Curry Age: 64 yrs Sex: Male : 1960 Arrival Date: 08/16/2024 Time: 09:52 Bed 22 Private MD: Diagnosis: Encounter for Staple Removal Presentation: 08/16 11:04 Chief complaint: Patient states: Pt here to have xenia removed from scalp laceration. kb3 [place] placed 5 days ago in this ER. Coronavirus screen: Vaccine status: Patient reports receiving the 2nd dose of the covid vaccine. Client denies travel out of the [place] in the last 14 days. Ebola Screen: Patient negative for fever greater than or equal to 101.5 degrees Fahrenheit, and additional compatible Ebola Virus Disease symptoms Patient denies exposure to infectious person. Patient denies travel to an Ebola-affected area in the 21 days before illness onset. Initial Sepsis Screen: Does the patient meet any 2 criteria? No. Patient's initial sepsis screen is negative. Does the patient have a suspected source of infection?. Risk Assessment: Do you want to hurt yourself or someone else? Patient reports no desire to harm self or others. 11:04 Method Of Arrival: Ambulatory kb3 11:04 Acuity: DEVORAH 4 kb3 Triage Assessment: 11:05 General: Appears in no apparent distress. Behavior is calm, cooperative. Pain: Denies kb3 pain. Injury Description: Laceration sustained to scalp is clean, Healing. Historical: - Allergies: 11:05 No Known Allergies; kb3 - Home Meds: 11:05 None [Active]; kb3 - PMHx: 11:05 None; kb3 - PSHx: 11:05 None; kb3 - Immunization history:: Adult Immunizations up to date, Client reports receiving the 2nd dose of the Covid vaccine, Last tetanus immunization: up to date. - Infectious Disease History:: Denies. - Social history:: Smoking status: Patient denies any tobacco usage or history of. Screenin:[address] [facility] ED Fall Risk Assessment (Adult) History of falling in the last 3 months, kb3 including since admission No falls in past 3 months (0 pts) Confusion or Disorientation No (0 pts) Intoxicated or Sedated No (0 pts) Impaired Gait No (0 pts) Mobility Assist Device Used No (0 pt) Altered Elimination No (0 pt) Score/Fall Risk Level 0 - 2 = Low Risk Oriented to surroundings. Abuse screen: Denies threats or abuse. Denies injuries from another. Nutritional screening: No deficits noted. Tuberculosis screening: No symptoms or risk factors identified. Assessment: 11:06 General: See triage assessment. kb3 ED Course: 09:55 Patient arrived in ED. im 10:58 Skip Ferguson MD is Attending Physician. ec2 11:05 Triage completed. kb3 11:05 Arm band placed on right wrist. kb3 11:06 Patient has correct armband on for positive identification. Provided Education on: kb3 Staple removal procedure. 11:06 Patient did not have IV access during this emergency room visit. kb3 11:06 Assisted provider with: Staple removal. kb3 Administered Medications: No medications were administered Medication: 11:06 VIS not applicable for this client. kb3 Outcome: 11:01 Discharge ordered by . ec2 11:06 Discharged to home ambulatory, kb3 11:06 Condition: stable 11:06 Discharge instructions given to patient, Instructed on discharge instructions, Demonstrated understanding of instructions, follow-up care, wound care, 11:08 Patient left the ED. kb3 Signatures: Evie Campos RN RN kb3 Paulette Erwin Skip Ferguson MD MD ec2 Corrections: (The following items were deleted from the chart) 11:12 11:06 No provider procedures requiring assistance completed. kb3 kb3
== END 2024-08-16 11:08 | disposition home or self-care (01) ==
LOC: ER 09:52
DX: Z48.02 Encounter for removal of sutures (principal)
CPT/HCPCS: 99282

== ENCOUNTER 2024-10-23 16:20 | Emergency (ER) | payer SELFPAY ==
--- NOTE | 2024-10-23 18:37 | RAD REPORT ---
EXAMINATION: ONE VIEW CHEST XR CLINICAL INDICATION: upper back pain TECHNIQUE: Frontal chest projection is submitted. Examination is limited by patient positioning and t echnique. COMPARISON: 07/15/2008 FINDINGS: The lungs are diffusely emphysematous. 2 cm density right midlung adjacent to the right hilum noted. The heart is upper limit of normal in size. IMPRESSION: 2 cm density right midlung noted could be a mass. CT chest recommended. COPD.
[2024-10-23 19:45] LABS: Absolute Lymphocytes (CBC) 0.4 K/uL (0.7-4.9); Absolute Monocytes 0.5 K/uL (0.1-1.3); Absolute Neutrophil 6.5 K/uL (1.8-8.0); Basophils % 0.1 % (0-1.3); Hematocrit 41.8 % (39.6-49.0); Hemoglobin 14.2 g/dL (13.6-17.9); Lymphocytes % 5.3 % (15.3-44.8); MCH 30.6 pg (27.0-35.0); MPV 7.5 fL (7.6-11.3); Monocytes % 6.9 % (3.3-12.3); Neutrophils % 87.7 % (41.7-73.7); Nucleated Red Blood Cells % 0.1 % (0-0); Platelets 195 thou/uL (152-406); RBC Red Blood Cell Count 4.65 M/uL (4.33-5.43); Red Cell Distribution Width 13.1 % (12.1-15.2)
[2024-10-23 20:06] LABS: Albumin 3.1 g/dL (3.4-5.0); Albumin/Globulin Ratio 0.7 (1.1-1.8); Anion Gap 10.9 mEq/L (5.0-15.0); Bilirubin Direct 0.3 mg/dL (0-0.2); Bilirubin Indirect, Calculated 0.7 mg/dL (0.2-0.8); Globulin 4.6 g/dL (2.3-3.5); Magnesium 2.1 mg/dL (1.6-2.4); Potassium 3.9 mEq/L (3.5-5.1); Protein, Total 7.7 g/dL (6.4-8.2); Troponin High Sensitivity 15.9 pg/mL (<58.9)
[2024-10-23 20:48] LABS: Monoscreen NEG (NEG)
[2024-10-23 20:48] LABS: SARS-CoV-2 Antigen CONTROL BLUE LINE VIS/BG OK; SARS-CoV-2 Antigen Rapid Res Negative (Negative)
--- NOTE | 2024-10-23 21:56 | RAD REPORT ---
EXAMINATION: CTA CHEST PE CLINICAL INDICATION: back pain TECHNIQUE: This examination was performed according to an angiographic protocol with 3D post-processi ng. This involves 3D reconstructions, MIPs, volume rendered images and/or shaded surface rendering. One or more of the following dose reduction techniques were used: Automated exposure control, adjustm ent of the mA and/or kV according to patient size, and/or iterative reconstruction. Unless otherwise specified, incidental findings do not require dedicated imaging follow-up. COMPARISON: No prior exam. FINDINGS: PULMONARY ARTERIES: Normal caliber. No evidence of pulmonary emboli to the subsegmental level. THORACIC AORTA: Normal caliber and configuration. LUNGS: The lungs are mildly emphysematous. 4 cm area of airspace consolidation noted in the inferior aspect medially of the right upper lobe. Patchy airspace opacities are present in the superior segments of both lower lobes and both lung bases.. Moderate opacification medial right lung base. PLEURA: No pleural effusion. No pneumothorax. MEDIASTINUM AND LYMPH NODES: Mild bilateral hilar and mediastinal lymphadenopathy is present. OSSEOUS STRUCTURES AND CHEST WALL: Intact. UPPER ABDOMEN: No significant abnormalities. IMPRESSION: Multifocal bilateral lung opacities probably representing multifocal pneumonia. There is mild medias tinal and hilar lymphadenopathy present. This is presumably reactive. No pulmonary embolism. Recommend follow-up imaging to document resolution after appropriate treatment.
--- NOTE | 2024-10-23 22:20 | ER ---
Nurse's Notes [facility] Name: Ha Curry Age: 64 yrs Sex: Male : 1960 Arrival Date: 10/23/2024 Time: 16:20 Bed DX3 Private MD: Diagnosis: Influenza due to identified novel influenza A virus with pneumonia;Hypo-osmolality and hyponatremia Presentation: 10/23 17:09 Chief complaint: Patient states: chills, body aches, decreased appetite x 1 week. ss Coronavirus screen: Client denies travel out of the [place] in the last 14 days. Ebola Screen: Patient denies exposure to infectious person. Patient denies travel to an Ebola-affected area in the 21 days before illness onset. Initial Sepsis Screen: Does the patient meet any 2 criteria? No. Patient's initial sepsis screen is negative. Does the patient have a suspected source of infection? No. Patient's initial sepsis screen is negative. Risk Assessment: Do you want to hurt yourself or someone else? Patient reports no desire to harm self or others. Onset of symptoms was October 16, 2024. 17:09 Method Of Arrival: Ambulatory ss 17:09 Acuity: DEVORAH 3 ss Historical: - Allergies: 17:11 No Known Allergies; ss - Home Meds: 17:11 None [Active]; ss - PMHx: 17:11 None; ss - PSHx: 17:11 None; ss - Immunization history:: Client reports having NOT received the Covid vaccine. - Infectious Disease History:: Denies. - Social history:: Smoking status: Patient/guardian denies using tobacco, Stopped _ months ago .25. Screenin:00 [facility] ED Fall Risk Assessment (Adult) History of falling in the last 3 months, ha1 including since admission No falls in past 3 months (0 pts) Confusion or Disorientation No (0 pts) Intoxicated or Sedated No (0 pts) Impaired Gait No (0 pts) Mobility Assist Device Used No (0 pt) Altered Elimination No (0 pt) Score/Fall Risk Level 0 - 2 = Low Risk Oriented to surroundings, Maintained a safe environment, Educated pt \T\ family on fall prevention, incl call for assistance when getting out of bed. Abuse screen: Denies threats or abuse. Denies injuries from another. Nutritional screening: No deficits noted. Tuberculosis screening: No symptoms or risk factors identified. Assessment: 19:50 General: Appears uncomfortable, Behavior is cooperative. Pain: Complains of pain in ha1 back Pain currently is 7 out of 10 on a pain scale. Quality of pain is described as aching. Neuro: Level of Consciousness is awake, alert, obeys commands, Oriented to person, place, time, situation. Cardiovascular: Capillary refill < 3 seconds Patient's skin is warm and dry. Respiratory: Airway is patent Respiratory effort is even, unlabored, Respiratory pattern is regular, symmetrical. GI: No signs and/or symptoms were reported involving the gastrointestinal system. Abdomen is flat, non-distended. : No signs and/or symptoms were reported regarding the genitourinary system. Derm: Skin is moist, Skin is normal. Musculoskeletal: Circulation, motion, and sensation intact. Range of motion: intact in all extremities. 21:00 Reassessment: Patient and/or family updated on plan of care and expected duration. Pain ha1 level reassessed. Patient is alert, oriented x 3, equal unlabored respirations, skin warm/dry/pink. 22:00 Reassessment: Patient and/or family updated on plan of care and expected duration. Pain ha1 level reassessed. Patient is alert, oriented x 3, equal unlabored respirations, skin warm/dry/pink. 23:00 Reassessment: Patient and/or family updated on plan of care and expected duration. Pain ha1 level reassessed. Patient is alert, oriented x 3, equal unlabored respirations, skin warm/dry/pink. 23:00 Reassessment: discharge pending due to ongoing fluids to be complete. ha1 Vital Signs: 17:09 Pulse 80; Resp 18; Temp 98.8(O); Pulse Ox 95% on R/A; Weight 68.04 kg; Height 5 ft. 8 ss in. ; Pain 9/10; 17:11 BP 129 / 67; ss 22:30 BP 127 / 85; Pulse 84; Resp 18 S; Temp 97.9(T); Pulse Ox 98% on R/A; ha1 17:09 Body Mass Index 22.81 (68.04 kg, 172.72 cm) ss 17:09 Pain Scale: Adult ss ED Course: 16:24 Patient arrived in ED. ra3 17:04 Sabas Bradford [facility]. cp 17:04 Lebron Duvall MD is Attending Physician. cp 17:11 Triage completed. ss 17:11 Arm band placed on right wrist. ss 18:05 XRAY Chest (1 view) In Process Unspecified. EDMS 19:25 Patient has correct armband on for positive identification. Bed in low position. Call ha1 light in reach. Side rails up X 1. Adult w/ patient. 19:25 Provided Education on: plan of care . ha1 19:33 Inserted saline lock: 20 gauge in left antecubital area, using aseptic technique. Blood oh1 collected. Flushed with 10 mL NS. 19:35 Initial lab(s) drawn, by me, sent to lab. oh1 19:35 COVID swab sent to lab. Flu and/or RSV swab sent to lab. Strep swab sent to lab. oh1 20:35 [place] Screen Profile Sent. oh1 20:35 Strep Sent. oh1 21:40 CT Chest For PE Angio In Process Unspecified. EDMS 22:00 Urinalysis W/Microscopic Sent. jb4 22:49 EKG done, by master certified rv technician. reviewed by Sabas HAYNES. oh1 23:25 No provider procedures requiring assistance completed. ha1 23:25 IV discontinued, intact, bleeding controlled, No redness/swelling at site. Pressure ha1 dressing applied. Administered Medications: 22:15 Drug: Ketorolac IVP 15 mg IVP once Route: IVP; Site: right antecubital; ha1 22:50 Follow up: Response: No adverse reaction; Pain is decreased ha1 22:15 Drug: LevOfloxacin PO 750 mg PO once Route: PO; ha1 22:50 Follow up: Response: No adverse reaction ha1 22:15 Drug: Oseltamivir PO 75 mg PO once Route: PO; ha1 22:50 Follow up: Response: No adverse reaction ha1 22:45 Drug: NS 0.9% IV 500 ml IV at bolus once; to be given as a bolus over 30 minutes Route: ha1 IV; Rate: bolus; Site: left antecubital; 23:25 Follow up: Response: No adverse reaction; IV Status: Completed infusion; IV Intake: ha1 500ml Medication: 23:00 VIS not applicable for this client. ha1 Intake: 23:25 IV: 500ml; Total: 500ml. ha1 Outcome: 22:20 Discharge ordered by . cp 23:25 Discharged to home ambulatory, with family, ha1 23:25 Condition: stable 23:25 Discharge instructions given to patient, family, Instructed on discharge instructions, follow up and referral plans. medication usage, Demonstrated understanding of instructions, follow-up care, medications, Prescriptions given X 3, 23:29 Patient left the ED. ha1 Signatures: Dispatcher [employer] EDMS Geraldine Magana RN RN Sabas Bradford PA PA cp Bryson, James, RN RN jb4 Cyndi Marshall RN RN ha1 Juany Diaz ra3 Miriam Lopez wi1
--- NOTE | 2024-10-23 22:20 | EDPHYS ---
Physician Documentation [facility] Name: Ha Curry Age: 64 yrs Sex: Male : 1960 Arrival Date: 10/23/2024 Time: 16:20 Bed DX3 Private MD: ED Physician Lebron Duvall HPI: 10/23 17:20 This 64 yrs old Male presents to ER via Ambulatory with complaints of cp Decreased Appetite - Body aches, Blurred Vision. 17:20 The patient or guardian reports flu symptoms, body aches, chills, anorexia. Onset: The cp symptoms/episode began/occurred 1 week(s) ago. 17:20 Associated signs and symptoms: Pertinent negatives: chest pain, diarrhea, fever, cp vomiting, abdominal pain. Severity of symptoms: in the emergency department the symptoms are unchanged despite home interventions. 17:20 Patient c/o upper back pain. Denies injury. cp Historical: - Allergies: 17:11 No Known Allergies; ss - Home Meds: 17:11 None [Active]; ss - PMHx: 17:11 None; ss - PSHx: 17:11 None; ss - Immunization history:: Client reports having NOT received the Covid vaccine. - Infectious Disease History:: Denies. - Social history:: Smoking status: Patient/guardian denies using tobacco, Stopped _ months ago .25. ROS: 17:25 Constitutional: Positive for body aches, chills, Negative for fever, poor PO intake, cp 17:25 Back: Positive for pain at rest, pain with movement, cp 17:25 Eyes: Negative for injury, pain, redness, and discharge, cp 17:25 ENT: Negative for drainage from ear(s), ear pain, difficulty swallowing, difficulty handling secretions, 17:25 Cardiovascular: Negative for chest pain, edema, palpitations, 17:25 Respiratory: Positive for slight cough, Negative for shortness of breath, wheezing, 17:25 Abdomen/GI: Negative for abdominal pain, vomiting, diarrhea, constipation, 17:25 : Negative for urinary symptoms, flank pain, testicular pain cp 17:25 Neuro: Negative for altered mental status, dizziness, headache, syncope, 17:25 All other systems are negative, Exam: 17:30 Constitutional: The patient appears in no acute distress, alert, awake, cp non-diaphoretic, non-toxic, well developed, well nourished, 17:30 Head/Face: Normocephalic, atraumatic. cp 17:30 Eyes: Periorbital structures: appear normal, Conjunctiva: normal, no exudate, no injection, Sclera: no appreciated abnormality, Lids and lashes: appear normal, bilaterally, 17:30 ENT: External ear(s): are unremarkable, Nose: is normal, Mouth: Lips: moist, Oral mucosa: moist, Posterior pharynx: Airway: no evidence of obstruction, patent, 17:30 Neck: ROM/movement: is normal, is supple, without pain, no range of motions limitations, no meningismus, 17:30 Chest/axilla: Inspection: normal, 17:30 Cardiovascular: Rate: normal, Rhythm: regular, Edema: is not appreciated, JVD: is not appreciated, 17:30 Respiratory: the patient does not display signs of respiratory distress, Respirations: labored breathing, is not present, shallow respirations, that is mild, Breath sounds: bronchial sounds, that are mild, are heard diffusely, stridor, is not appreciated, wheezing: is not appreciated, 17:30 Abdomen/GI: Inspection: abdomen appears normal, Palpation: abdomen is soft and non-tender, in all quadrants, 17:30 Back: pain, that is mild, of the left scapular area, right scapular area, left subscapular area and right subscapular area, ROM is normal, 17:30 Neuro: Orientation: to person, place \T\ time. Mentation: is normal, Motor: moves all fours, strength is normal, Sensation: is normal, 22:52 ECG was reviewed by the Attending Physician. cp Vital Signs: 17:09 Pulse 80; Resp 18; Temp 98.8(O); Pulse Ox 95% on R/A; Weight 68.04 kg; Height 5 ft. 8 ss in. ; Pain 9/10; 17:11 BP 129 / 67; ss 22:30 BP 127 / 85; Pulse 84; Resp 18 S; Temp 97.9(T); Pulse Ox 98% on R/A; ha1 17:09 Body Mass Index 22.81 (68.04 kg, 172.72 cm) ss 17:09 Pain Scale: Adult ss MDM: 17:11 Medical Screening Exam initiated cp 20:00 Differential diagnosis: bronchitis, flu, URI, pneumonia, sepsis, uti. cp 22:20 Data reviewed: vital signs, nurses notes, lab test result(s), EKG, radiologic studies, cp CT scan, plain films, and as a result, I will discharge patient. 22:20 Antibiotic administration: The patient is discharged and will get outpatient cp antibiotics, Levaquin. Consideration of Admission/Observation Escalation of care including admission/observation considered. I considered the following discharge prescriptions or medication management in the emergency department Medications were administered in the Emergency Department. See MAR. Independent interpretation of the following test(s) in the Emergency Department EKG: See my EKG interpretation above. Counseling: I had a detailed discussion with the patient and/or guardian regarding the historical points, exam findings, and any diagnostic results supporting the discharge/admit diagnosis, lab results, radiology results, the need for outpatient follow up, a family practitioner, to return to the emergency department if symptoms worsen or persist or if there are any questions or concerns that arise at home. Response to treatment: the patient's symptoms have mildly improved after treatment, and as a result, I will discharge patient. 10/23 17:16 Order name: Influenza Screen (a \T\ B); Complete Time: 21:08 10/23 21:08 Interpretation: Reviewed. 10/23 17:16 Order name: Urinalysis W/Microscopic; Complete Time: 22:54 cp 10/23 17:16 Order name: SARS RAPID; Complete Time: 21:08 cp 10/23 17:16 Order name: Basic Metabolic Panel; Complete Time: 20:37 10/23 20:37 Interpretation: Normal except: NA 128; CL 93; GLUC 118. cp 10/23 17:16 Order name: CBC with Diff 02 22:54 Interpretation: Normal except: MPV 7.5; PATRICIA% 87.7; LYM% 5.3; LYMA 0.4. cp 10/23 17:16 Order name: LFT's; Complete Time: 20:37 cp 10/23 17:16 Order name: Magnesium; Complete Time: 20:37 cp 10/23 17:16 Order name: Troponin HS; Complete Time: 20:37 cp 10/23 17:16 Order name: Strep; Complete Time: 21:08 cp 10/23 17:16 Order name: [place] Screen Profile; Complete Time: 21:08 cp 10/23 19:12 Order name: D-Dimer; Complete Time: 20:37 cp 10/23 20:50 Order name: Throat Culture EDMS 10/23 23:08 Order name: Manual Differential EDMS 10/23 17:16 Order name: XRAY Chest (1 view); Complete Time: 19:12 cp 10/23 20:38 Order name: CT Chest For PE Angio; Complete Time: 21:57 cp 10/23 17:16 Order name: Cardiac monitoring; Complete Time: 22:50 cp 10/23 17:16 Order name: EKG - Nurse/Tech; Complete Time: 22:50 cp 10/23 17:16 Order name: IV Saline Lock; Complete Time: 20:35 cp 10/23 17:16 Order name: Labs collected and sent; Complete Time: 20:35 cp 10/23 17:16 Order name: O2 Per Protocol; Complete Time: 23:26 cp 10/23 17:16 Order name: O2 Sat Monitoring; Complete Time: 23:26 cp EC:52 Rate is 84 beats/min. Rhythm is regular. FL interval is normal. QRS interval is normal. cp QT interval is normal. T waves are Inverted in lead aVR. Interpreted by me. Reviewed by me. Administered Medications: 22:15 Drug: Ketorolac IVP 15 mg IVP once Route: IVP; Site: right antecubital; ha1 22:50 Follow up: Response: No adverse reaction; Pain is decreased ha1 22:15 Drug: LevOfloxacin PO 750 mg PO once Route: PO; ha1 22:50 Follow up: Response: No adverse reaction ha1 22:15 Drug: Oseltamivir PO 75 mg PO once Route: PO; ha1 22:50 Follow up: Response: No adverse reaction ha1 22:45 Drug: NS 0.9% IV 500 ml IV at bolus once; to be given as a bolus over 30 minutes Route: ha1 IV; Rate: bolus; Site: left antecubital; 23:25 Follow up: Response: No adverse reaction; IV Status: Completed infusion; IV Intake: ha1 500ml Disposition: 10/24 09:43 Co-signature as Attending Physician, Lebron Duvall MD I reviewed the patient's care rn provided by the Advanced Practice Provider and agree with the diagnosis and treatment plan. Disposition Summary: 10/23/24 22:20 Discharge Ordered Notes: Location: Home cp Problem: new cp Symptoms: have improved cp Condition: Stable cp Diagnosis - Influenza due to identified novel influenza A virus with pneumonia cp - Hypo-osmolality and hyponatremia cp Followup: cp - With: Private Physician - When: 5 - 6 days - Reason: Recheck today's complaints Discharge Instructions: - Discharge Summary Sheet cp - Hyponatremia cp - Influenza, Adult cp - Community-Acquired Pneumonia, Adult cp Forms: - Medication Reconciliation Form cp - Antibiotic Education cp - Prescription Opioid Use cp - Patient Portal Instructions cp - Leadership Thank You Letter cp Prescriptions: - Ibuprofen 800 mg Oral Tablet - take 1 tablet ORAL route every 8 hours As needed take with food; 30 tablet; cp Refills: 0, Product Selection Permitted - Tamiflu 75 mg Oral capsule - take 1 tablet ORAL route every 12 hours for 5 days; 10 tablet; Refills: 0, cp Product Selection Permitted - levofloxacin 500 mg Oral tablet - take 1 tablet ORAL route once daily for 7 days start taking evening of cp 10-24-2024; 6 tablet; Refills: 0, Product Selection Permitted Signatures: Dispatcher [employer] EDMS Lebron Duvall MD MD rn Blanchard, Shelby, RN RN ss Sabas Bradford PA PA cp Cyndi Marshall RN RN ha1 Corrections: (The following items were deleted from the chart) 10/23 17:17 17:17 Influenza Screen (A \T\ B)+BA.LAB.BRZ ordered. EDMS EDMS 17:17 17:17 Urinalysis W/Microscopic+U.LAB.BRZ ordered. EDMS EDMS 17:17 17:17 SARS-COV-2 Antigen Rapid+I.LAB.BRZ ordered. EDMS EDMS 17:17 17:17 BASIC METABOLIC PANEL+C.LAB.BRZ ordered. EDMS EDMS 17:17 17:17 CBC+H.LAB.BRZ ordered. EDMS EDMS 17:17 17:17 HEPATIC FUNCTION+C.LAB.BRZ ordered. EDMS EDMS 17:17 17:17 MAGNESIUM+C.LAB.BRZ ordered. EDMS EDMS 17:17 17:17 Troponin High Sensitivity+C.LAB.BRZ ordered. EDMS EDMS 17:17 17:17 Group A Streptococcus Rapid Sc+BA.LAB.BRZ ordered. EDMS EDMS 17:17 MONO SCREEN PROFILE+I.LAB.BRZ ordered. EDMS EDMS 17:17 Chest Single View+RAD.RAD.BRZ ordered. EDMS EDMS
[2024-10-23] MEDS ORDERED: KETOROLAC 30 MG/ML INJ ONE (22:26)
[2024-10-23] MEDS ORDERED: OSELTAMIVIR 75 MG CAP PO ONE (22:26)
[2024-10-23] MEDS ORDERED: levoFLOXacin 750 MG TAB ONE (22:26)
[2024-10-23] MEDS ORDERED: NA CHLORIDE 0.9% 500 ML ONE (22:40)
[2024-10-23 22:43] LABS: Specific Gravity 1.026 (1.005-1.030); Sqamous Epithelial <5 /HPF (None Seen); Urine Bacteria None Seen /HPF (<20); Urine Bilirubin NEGATIVE (Negative); Urine Blood 1+ (Negative); Urine Clarity Turbid (Clear); Urine Color Yellow (Yellow); Urine Culture Reflex Order NOT NEEDED; Urine Glucose NEGATIVE (Negative); Urine Ketones NEGATIVE (Negative); Urine Micro Reflex YN NO BILL MICROSCOPIC; Urine Mucus Slight /HPF (None Seen); Urine Nitrite NEGATIVE (Negative); Urine Protein 2+ (Negative); Urine RBC <5 /HPF (None Seen); Urine Urobilinogen Normal (Normal); Urine WBC <5 /HPF (<5); Urine pH 5.5 (5.0-7.0)
[2024-10-23 23:08] LABS: Band Neutrophils 27 % (0-1); Differential Total Cells Count 100; Lymphocytes 11 % (15-42); Metamyelocytes 2 % (0-0); Monocytes 4 % (0-10); Reactive Lymphocytes 1 %; Segmented Neutrophils 55 % (40-80)
[2024-10-23 23:09] LABS: Blood Morphology Comment NOT SEEN (NOT SEEN); Platelet Estimate ADEQ
[2024-10-23 23:50] VITALS: BP 127/85; TEMP 97.9; O2SAT 98
--- NOTE | 2024-10-25 12:46 | EKG ---
Test Date: 2024-10-23 Test Time: 22:45:53 [employer] Decapper: HERNANDEZ MEASUREMENT RESULTS: Intervals: Rate: 84 DC: 140 QRSD: 88 QT: 382 QTc: 451 [place]: P: 67 DC: 140 QRS: 68 T: 56 INTERPRETIVE STATEMENTS: Normal sinus rhythm Normal ECG Compared to ECG 07/22/2024 23:06:23 No significant changes Electronically Signed On 10-25-24 12:42:13 WORK STUDY STUDENT by Kelvin Barclay
== END 2024-10-23 23:29 | disposition home or self-care (01) ==
LOC: ER 16:20
DX: J10.00 Influenza due to other identified influenza virus with unspecified type of pneumonia (principal); E87.1 Hypo-osmolality and hyponatremia; Z11.52 Encounter for screening for COVID-19
CPT/HCPCS: 36415; 71045; 71275; 80048; 80076; 81001; 83735; 84484; 85025; 85379; 86308; 87070; 87081; 87804; 87811; 93005; 96361; 96374; 99284; J7040; Q9967